=== PATIENT | male | born 1995 | race American Indian/Alaskan Native ===

== ENCOUNTER 2016-03-29 18:03 | Emergency (ER) | payer SELFPAY ==
[2016-03-29] MEDS ORDERED: TYLENOL PO ONE (21:31)
[2016-03-29] MEDS ORDERED: NORCO 5/325 PO ONE (23:22)
[2016-03-29] MEDS ORDERED: TORADOL IM ONE (23:23)
--- NOTE | 2016-03-29 23:40 | Emergency Department Report ---
Upper Extremity - HPI Upper Extremity: Right Arm, Right Elbow, Right Forearm, Right Wrist Occurred When: Today Mechanism: Fall Severity: moderate Symptoms: Yes Pain with Movement (pt cannot flex or extend his right elbow), Yes Limited Range of Movement (ROM right elbow severely limited by pain), Yes Weakness (due to pain), Yes Swelling (at left elbow joint) Other History: 20-year-old male past medical history smoker presents with complaint of right arm pain status post mechanical fall down steps at home. Patient states he was exiting his apartment walking down steps outside of apartment slipped and fell down approximately 4-5 steps, point of contact with ground with his right elbow/arm/forearm region. Occurred approximately 7 hours ago. Patient awake alert and oriented 3 denies any head trauma denies any loss of consciousness due to fall. Patient has his right arm in a sling and looks to be extremely uncomfortable. When I asked patient to try to move his right arm he cries out in pain. <ANJALI NAVARRETE - Last Filed: 03/29/16 23:36> <JERMAN NASCIMENTO - Last Filed: 03/30/16 06:07> - HPI Chief Complaint: Extremity Injury, Upper Stated Complaint: POSS RT ARM BROKEN Time Seen by Provider: 03/29/16 23:22 ED Review of Systems ROS: Stated complaint: POSS RT ARM BROKEN Other details as noted in HPI Constitutional: denies: chills, fever Eyes: denies: eye pain, eye discharge, vision change ENT: denies: ear pain, throat pain Respiratory: denies: cough, shortness of breath, wheezing Cardiovascular: denies: chest pain, palpitations Endocrine: no symptoms reported Gastrointestinal: denies: abdominal pain, nausea, diarrhea Genitourinary: denies: urgency, dysuria Musculoskeletal: as per HPI. denies: back pain, joint swelling, arthralgia Skin: denies: rash, lesions Neurological: denies: headache, weakness, paresthesias Psychiatric: denies: anxiety, depression Hematological/Lymphatic: denies: easy bleeding, easy bruising <ANJALI NAVARRETE - Last Filed: 03/29/16 23:36> ROS: Stated complaint: POSS RT ARM BROKEN Other details as noted in HPI <JERMAN NASCIMENTO - Last Filed: 03/30/16 06:07> ED Past Medical Hx <ANJALI NAVARRETE - Last Filed: 03/29/16 23:36> <JERMAN NASCIMENTO - Last Filed: 03/30/16 06:07> - Medications Home Medications: Home Medications Medication Instructions Recorded Confirmed Last Taken Type Ibuprofen [Motrin] 800 mg PO Q8HR PRN #30 tablet 03/30/16 Unknown Rx Upper Extremity Exam - Exam General: Vital signs noted. No distress. Alert and acting appropriately. Head and Torso: No HEENT Abnormality, No Neck Tenderness, No Chest/Lungs Abnormality, No Abdominal Tenderness, No Back Tenderness Shoulder Exam: Yes Normal Range of Motion in Shoulder, No Shoulder Tenderness, No Clavicle Tenderness, No Shoulder Deformity, No AC Joint Tenderness Arm Exam: No Arm/Humerus Tenderness, No Arm Deformity Elbow: Yes Elbow Tenderness, No Normal Range of Motion in Elbow (patient cannot flex or extend right elbow due to pain), No Elbow Deformity Forearm: Yes Forearm Tenderness (form tenderness mid forearm and at right proximal forearm near elbow laterally and medially), Yes Pain with Pronation, Yes Pain with Supination, No Forearm Deformity Wrist: No Wrist Tenderness, No Normal ROM in Wrist (pain with flexion and extension right wrist), No Wrist Deformity, No Snuffbox Tenderness, No Pain with Axial Thumb Compression Hand: Yes Normal ROM in Digit(s), No Hand Tenderness, No Hand Deformity, No Digit Tenderness, No Digit(s) Deformity, No Tendon Dysfunction CMS Exam: Yes Normal Capillary Refill (distal capillary refill all fingers fully intact), Yes Normal Distal Sensation (sensation all fingers and hand intact), No Broken Skin, No Normal Distal Pulses <ANJALI NAVARRETE - Last Filed: 03/29/16 23:36> - Exam General: Vital signs noted. No distress. Alert and acting appropriately. <JERMAN NASCIMENTO L - Last Filed: 03/30/16 06:07> ED Course Vital Signs 03/29/16 03/29/16 03/29/16 18:07 21:34 22:34 Temperature 98.6 F Pulse Rate 65 Respiratory 16 18 18 Rate Blood Pressure 134/68 O2 Sat by Pulse 99 Oximetry 03/29/16 23:32 Temperature Pulse Rate Respiratory 20 Rate Blood Pressure O2 Sat by Pulse Oximetry <ANJALI NAVARRETE - Last Filed: 03/29/16 23:36> Vital Signs 03/29/16 03/29/16 03/29/16 18:07 21:34 22:34 Temperature 98.6 F Pulse Rate 65 Respiratory 16 18 18 Rate Blood Pressure 134/68 Blood Pressure [Right] O2 Sat by Pulse 99 Oximetry 03/29/16 03/29/16 03/30/16 23:32 23:36 00:06 Temperature Pulse Rate Respiratory 20 20 20 Rate Blood Pressure Blood Pressure [Right] O2 Sat by Pulse Oximetry 03/30/16 03/30/16 00:32 02:06 Temperature 98.6 F Pulse Rate 66 Respiratory 20 20 Rate Blood Pressure Blood Pressure 128/65 [Right] O2 Sat by Pulse 99 Oximetry <JERMAN NASCIMENTO - Last Filed: 03/30/16 06:07> ED Medical Decision Making - Medical Decision Making A/P: Mechanical fall, possible forearm or elbow fracture 1-signed out to my colleague at the end of my shift, Jerman Nascimento, who will continue care and management 2-pain control, I placed patient's right arm in sling and ordered x-rays of the right upper extremity had humerus elbow forearm and wrist. My concern is that patient may have right elbow fracture or dislocation likely require a splint and orthopedic consultation and follow-up. <ANJALI NAVARRETE - Last Filed: 03/29/16 23:36> - Medical Decision Making Right elbow pain donnell wrap applied to right elbow for mild edema and right shoulder sling upon discharge pt was able to fully extend right arm upon discharge xray of humerus ,wrist ,elbow and forearm show no fracture/dislocation pt to follow up with primary care doctor orthopedic in 3 days if no improvement <JERMAN NASCIMENTO - Last Filed: 03/30/16 06:07> Critical care attestation.: If time is entered above; I have spent that time in minutes in the direct care of this critically ill patient, excluding procedure time. <ANJALI NAVARRETE - Last Filed: 03/29/16 23:36> Critical care attestation.: If time is entered above; I have spent that time in minutes in the direct care of this critically ill patient, excluding procedure time. <JERMAN NASCIMENTO - Last Filed: 03/30/16 06:07> ED Disposition <ANJALI NAVARRETE - Last Filed: 03/29/16 23:36> Is pt being admited?: No Does the pt Need Aspirin: No <JERMAN NASCIMENTO L - Last Filed: 03/30/16 06:07> Clinical Impression: Elbow pain Qualifiers: Laterality: right Qualified Code(s): M25.521 - Pain in right elbow Fall Qualifiers: Encounter type: initial encounter Qualified Code(s): W19.XXXA - Unspecified fall, initial encounter Disposition: DISCHARGED TO HOME OR SELFCARE Condition: Stable Instructions: Arthralgia (ED), RICE Therapy (ED) Prescriptions: Ibuprofen [Motrin] 800 mg PO Q8HR PRN #30 tablet PRN Reason: Pain Referrals: [facility] [Outside] - 3-5 Days PRIMARY CARE,MD [Primary Care Provider] - 3-5 Days Forms: Accompanied Note, Work/School Release Form(ED)
--- NOTE | 2016-03-30 00:20 | Admit Criteria Form ---
Admission Criteria Documentation: PAIN MANAGEMENT GR Clinical Indications for Admission to Inpatient Care (Place 'X' for any and all applicable criteria): Hospital admission is needed for appropriate care of the patient because of ANY ONE of the following are present (1)(2)(3)(4)(5): [ ]I. Severe pain requiring acute inpatient management as indicated by ALL of the following (2)(5)(10): [ ]a) Continuous or frequent (eg, every 2 to 4 hours) parenteral analgesics required [A] [ ]b) Necessity (ie, alternative approaches not effective) for analgesic regimen that can only be performed or initiated in inpatient setting [ X]II. Pain causing debilitation to the point of inability to function or be supported at any other level of care [ ]III. Severe side effects from pain medications as indicated by ANY ONE of the following (12)(13)(14)(15): [ ]a) Uncontrollable seizures [ ]b) Cardiac arrhythmias [ ]c) Severe volume depletion [ ]d) Vomiting that is uncontrollable at any other level of care [ ]e) Altered mental status ([place] coma scale score less than 13) [ ]f) Obstipation with inadequate GI function to maintain nutrition [ ]g) Dehydration that is severe or persistent The original [employer] content created by [employer] has been revised. The portions of the content which have been revised are identified through the use of italic text or in bold, and [email or web address] has neither reviewed nor approved the modified material. All other unmodified content is copyright [employer]. Please see references footnoted in the original [employer] edition 2016 Admission Criteria Met: Yes
--- NOTE | 2016-03-30 00:38 | XRay Report ---
FINAL REPORT PROCEDURE: XR WRIST 3 RT TECHNIQUE: RIGHT wrist radiographs, including AP, lateral, and oblique views. CPT 12429 HISTORY: ? fracture s/p fall COMPARISON: No prior studies are available for comparison. FINDINGS: Fracture (s) and/or Dislocation(s): None . Alignment: Normal . Joint space(s): Normal . Soft tissues: Normal . Bone mineralization: Normal . Foreign bodies: None . IMPRESSION: Normal Examination.
--- NOTE | 2016-03-30 01:22 | XRay Report ---
FINAL REPORT PROCEDURE: XR ELBOW 3 RT TECHNIQUE: LEFT elbow radiographs, including AP, lateral, and oblique views. CPT 82489 HISTORY: s/p fqall ? fracture or dislocation left elbow COMPARISON: No prior studies are available for comparison. FINDINGS: Fracture (s) and/or Dislocation(s): None . Alignment: Normal . Joint space(s): Normal . Soft tissues: Normal . Bone mineralization: Normal . Foreign bodies: None . IMPRESSION: Normal Examination
--- NOTE | 2016-03-30 01:23 | XRay Report ---
FINAL REPORT PROCEDURE: XR HUMERUS 1V RT TECHNIQUE: One vIews of the right humerus. HISTORY: ? fracture s/p fall COMPARISON: No prior studies are available for comparison. FINDINGS: Fracture (s) and/or Dislocation(s): None. Joint space(s): Normal. Soft tissues: Normal. Bone mineralization:Normal. Foreign bodies: None. IMPRESSION: Normal examination.
--- NOTE | 2016-03-30 01:28 | XRay Report ---
FINAL REPORT PROCEDURE: XR FOREARM 1V RT TECHNIQUE: Right forearm radiographs, AP and lateral views. CPT 00481 HISTORY: ? fracture COMPARISON: No prior studies are available for comparison. FINDINGS: Fracture (s) and/or Dislocation(s): None . Joint space(s): Normal . Soft tissues: Normal . Bone mineralization: Normal . Foreign bodies: None . IMPRESSION: Normal Examination
[2016-03-30 02:08] VITALS: BP 128/65
== END 2016-03-30 02:09 | disposition home or self-care (01) ==
LOC: ED 18:03
DX: M25.521 Pain in right elbow (principal); W19.XXXA Unspecified fall, initial encounter; Y93.89 Activity, other specified; Y99.9 Unspecified external cause status; Y92.89 Other specified places as the place of occurrence of the external cause
CPT/HCPCS: 29105; 73060; 73080; 73090; 73110; 96372; 99284; J1885